=== PATIENT | male | born 1965 | race African-American/Black ===

== ENCOUNTER 2017-04-26 17:30 | Emergency (ER) | payer OTHER ==
[2017-04-26 17:39] VITALS: BP 147/94; PULSE 99; TEMP 97.6; BMI 31.1
--- NOTE | 2017-04-26 17:41 | PDOC ---
Rapid Medical Evaluation Time Seen by Provider: 04/26/17 17:35 Medical Evaluation: Allergies Allergy/AdvReac Type Severity Reaction Status Date / Time No Known Allergies Allergy Verified 04/12/11 03:11 04/26/17 17:35 I have performed a brief in-person evaluation of this patient. 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 Discharge Disposition - Diagnosis Foot pain, right - Referrals - Patient Instructions - Post Discharge Activity
--- NOTE | 2017-04-26 19:44 | PDOC ---
History of Present Illness - History of Present Illness Initial Comments: 04/26/17 19:49 The patient is a 51 year old male with a significant past medical history of type 2 DM, hypertension, who presents to the emergency department with right foot swelling and pain. The patient reports he visited an urgent care who diagnosed him with plantar fasciitis and advised him to follow up with an orthopedist. The patient reports he visited the orthopedist for a follow up who provided him with a boot and exercises which he reports provided mild relief. However, the patient reports that after approx. 3 days he stopped the exercises when he experienced progressively worsening right foot swelling and pain s/p walking around at work. Allergies: Lisinopril Past surgical history: Open heart surgery 2010, tonsillectomy PCP: Dr. Kelly <Moe Castro - Last Filed: 04/26/17 19:49> - General History Source: Patient Exam Limitations: No Limitations <Inna Merchant - Last Filed: 04/26/17 21:07> - General Chief Complaint: Injury Stated Complaint: FOOT INJURY Time Seen by Provider: 04/26/17 17:35 Past History <Moe Castro - Last Filed: 04/26/17 19:49> - Past Medical History Cardiac Disorders: Yes COPD: No Diabetes: Yes (type 2) - Surgical History Cardiac Surgery: Yes (triple bypass on 02/25/11) - Suicide/Smoking/Psychosocial Hx Smoking Status: No Smoking History: Never smoked Have you smoked in the past 12 months: No Number of Cigarettes Smoked Daily: 0 Information on smoking cessation initiated: No Hx Alcohol Use: No Drug/Substance Use Hx: No Substance Use Type: None <Inna Merchant - Last Filed: 04/26/17 21:07> - Past Medical History Allergies/Adverse Reactions: Allergies Allergy/AdvReac Type Severity Reaction Status Date / Time lisinopril Allergy Verified 04/26/17 17:36 Home Medications: Ambulatory Orders Meloxicam 7.5 mg PO ASDIR 04/26/17 Review of Systems - Review of Systems Comments:: 04/26/17 19:51 GENERAL/CONSTITUTIONAL: No fever or chills. No weakness. HEAD, EYES, EARS, NOSE AND THROAT: No change in vision. No ear pain or discharge. No sore throat. CARDIOVASCULAR: No chest pain or shortness of breath. RESPIRATORY: No cough, wheezing, or hemoptysis. GASTROINTESTINAL: No nausea, vomiting, diarrhea or constipation. GENITOURINARY: No dysuria, frequency, or change in urination. MUSCULOSKELETAL: +Right foot swelling and pain. No neck or back pain. SKIN: No rash NEUROLOGIC: No headache, vertigo, loss of consciousness, or change in strength/ sensation. ENDOCRINE: No increased thirst. No abnormal weight change. HEMATOLOGIC/LYMPHATIC: No anemia, easy bleeding, or history of blood clots. ALLERGIC/IMMUNOLOGIC: No hives or skin allergy. <Moe Castro - Last Filed: 04/26/17 19:49> *Physical Exam - Vital Signs Last Vital Signs Temp Pulse Resp BP Pulse Ox 97.6 F 99 H 18 147/94 100 04/26/17 17:36 04/26/17 17:36 04/26/17 17:36 04/26/17 17:36 04/26/17 17:36 - Physical Exam Comments: 04/26/17 19:52 GENERAL: Awake, alert, and fully oriented, in no acute distress HEAD: No signs of trauma EYES: PERRLA, EOMI, sclera anicteric, conjunctiva clear ENT: Auricles normal inspection, hearing grossly normal, nares patent, oropharynx clear without exudates. Moist mucosa NECK: Normal ROM, supple, no lymphadenopathy, JVD, or masses LUNGS: Breath sounds equal, clear to auscultation bilaterally. No wheezes, and no crackles HEART: Regular rate and rhythm, normal S1 and S2, no murmurs, rubs or gallops ABDOMEN: Soft, nontender, normoactive bowel sounds. No guarding, no rebound. No masses EXTREMITIES: +Edema and tenderness along dorsum of right foot. No clubbing or cyanosis. NEUROLOGICAL: Cranial nerves II through XII grossly intact. Normal speech, normal gait SKIN: Warm, Dry, normal turgor, no rashes or lesions noted. <Moe Castro - Last Filed: 04/26/17 19:49> - Vital Signs Last Vital Signs Temp Pulse Resp BP Pulse Ox 97.6 F 99 H 18 147/94 100 04/26/17 17:36 04/26/17 17:36 04/26/17 17:36 04/26/17 17:36 04/26/17 17:36 <Inna Merchant - Last Filed: 04/26/17 21:07> Medical Decision Making - Medical Decision Making 04/26/17 21:04 A/P: Patient with pain and swelling to the dorsum of the right foot base of the right great toe extending up the foot. X-ray was performed which showed a healed fracture to the proximal phalynx of the right great toe. He reports that he never knew that he broke his toe this occurred 3 years ago after kicking a step, has since had pain if he steps on the foot the wrong way. I have placed patient in surgical shoe, strict follow-up with orthopedics. <Inna Merchant - Last Filed: 04/26/17 21:07> *DC/Admit/Observation/Transfer - Attestations Scribe Attestion: 04/26/17 19:54 Documentation prepared by Moe Castro, acting as medical pathologist for [facility], [employer]. <Moe Castro - Last Filed: 04/26/17 19:49> - Discharge Dispostion Admit: No <Inna Merchant - Last Filed: 04/26/17 21:07> Diagnosis at time of Disposition: Foot pain, right, Toe fracture, right - Discharge Dispostion Disposition: HOME Condition at time of disposition: Stable - Referrals Referrals: Samira Kelly [Primary Care Provider] - Perry Blum MD [Staff Physician] - - Patient Instructions Additional Instructions: Please continue with the meloxicam Surgical shoe Follow up with ortho - Post Discharge Activity
== END 2017-04-26 20:24 | disposition home or self-care (01) ==
LOC: JERFT 17:30
DX: M79.671 Pain in right foot (principal); Z87.81 Personal history of (healed) traumatic fracture; E11.9 Type 2 diabetes mellitus without complications; I10 Essential (primary) hypertension; Z95.1 Presence of aortocoronary bypass graft
CPT/HCPCS: 73630-TC-RT-FY; 99281-25